=== PATIENT | male | born 1960 | race African-American/Black ===

== ENCOUNTER 2017-10-25 03:34 | Outpatient (CLI) | payer BC | END 2017-10-25 03:35 | disposition home or self-care (01) | LOC: BICULT 03:34 | PROVIDERS: ATTEND Internal Medicine Gastroenterology | DX: K21.9 Gastro-esophageal reflux disease without esophagitis (principal); R07.9 Chest pain, unspecified; K76.89 Other specified diseases of liver | CPT/HCPCS: 76705 ==

== ENCOUNTER 2022-02-23 09:59 | Inpatient (IN) | payer MEDICARE ==
[2022-02-18 13:25] VITALS: BMI 26.6
[2022-02-23] MEDS ORDERED: Fentanyl 250 MCG/5 ML VIAL ONE (12:07)
[2022-02-23] MEDS ORDERED: Levofloxacin 500 mg/D5W 100 ml Premix Bag ONE (12:21)
[2022-02-23] MEDS ORDERED: PHENYLEPHRINE-NS 100 MCG/ML 10 ML SYRINGE ONE (12:22)
[2022-02-23] MEDS ORDERED: Lidocaine 1% PF 5 ML VIAL ONE (12:22)
[2022-02-23] MEDS ORDERED: PROPOFOL 200 MG/20 ML VIAL ONE (12:22)
[2022-02-23] MEDS ORDERED: Ondansetron PF 4 MG/2 ML Vial ONE (12:22)
[2022-02-23] MEDS ORDERED: ePHEDrine 50 MG/ML VIAL ONE (12:22)
[2022-02-23] MEDS ORDERED: Ondansetron HCl/PF 4 MG/2 ML Vial IVP PRN (13:33)
[2022-02-23] MEDS ORDERED: Promethazine HCl 25 MG/ML VIAL IVPB PRN (13:33)
[2022-02-23] MEDS ORDERED: Promethazine HCl 25 MG/ML VIAL IM PRN (13:33)
[2022-02-23] MEDS ORDERED: Ketorolac Tromethamine 30 MG/ML VIAL IVP PRN (13:33)
[2022-02-23] MEDS ORDERED: Meperidine HCl/PF 25 MG/ML VIAL SLOW IVP PRN (13:33)
[2022-02-23] MEDS ORDERED: HYDROmorphone 2 MG/ML VIAL SLOW IVP PRN (13:33)
[2022-02-23 14:07] LABS: #Eosinphils 0.3 thou/uL (0.0-0.7); #Lymphocytes 1.8 thou/uL (1.20-3.40); #Monocytes 0.4 thou/uL (0.11-0.59); %Basophils 0.3 % (0.0-1.0); %Eosinophils 2.7 % (0.0-10.0); %Lymphocytes 19.1 % (21.0-51.0); %Monocytes 4.1 % (0.0-10.0); %Neutrophils 73.8 % (42.0-75.0); Hemoglobin 11.9 g/dL (14.0-18.0); Mean Corpuscular HGB CONC 32.4 g/dL (32.0-36.0); Mean Corpuscular Hemoglobin 29.9 pg (27.0-31.0); Mean Corpuscular Volume 92.2 fL (78.0-98.0); Mean Platelet Volume 8.6 fL (7.4-10.4); Platelet Count 180 thou/uL (130-400); RBC Distribution Width 11.9 % (11.5-14.5); Red Blood Cell (RBC) Count 3.97 mill/uL (4.70-6.10); White Blood Cell (WBC) Count 9.5 thou/uL (4.8-10.8)
[2022-02-23] MEDS ORDERED: Fentanyl 100 MCG/2 ML VIAL ONE (14:21)
[2022-02-23] MEDS ORDERED: B & O ONE (14:37)
[2022-02-23] MEDS ORDERED: Dextrose 5% in Water 1,000 ML IV PRN (14:41)
[2022-02-23] MEDS ORDERED: Dextrose 50% Abboject 50 ML SYRINGE SLOW IVP PRN (14:41)
[2022-02-23] MEDS ORDERED: HumaLOG 300 UNITS/3 ML VIAL SC PRN ×2 (14:41)
[2022-02-23] MEDS ORDERED: hydrALAZINE 20 MG/ML VIAL SLOW IVP PRN (14:42)
[2022-02-23] MEDS: D5 1/2 NS w/20 mEq KCL 1,000 ML IV SCH (18:17)
[2022-02-23] MEDS: Atorvastatin Calcium 40 MG TAB PO SCH (21:14)
[2022-02-23] MEDS: Carvedilol 25 MG TAB PO SCH (21:14)
[2022-02-23] MEDS: Famotidine 20 MG TAB PO SCH (21:15)
[2022-02-23] MEDS: Acetaminophen/Codeine 30-300mg Tablet PO PRN (21:15)
[2022-02-23] MEDS: Timolol 0.5% Ophth Soln 5 ml Bottle EA EYE SCH (21:36)
[2022-02-23] MEDS: Latanoprost 0.005% Ophth Soln 2.5 ml Bottle EA EYE SCH (21:36)
[2022-02-23] MEDS: Dorzolamide HCl 2% Ophth Soln 10 ml Bottle EA EYE SCH (21:37)
[2022-02-23] MEDS: B & O PR SCH (21:38)
[2022-02-23] MEDS: Docusate 100 MG CAP PO SCH (21:38)
[2022-02-23] MEDS: Brimonidine Tartrate 0.2% Ophth Soln 5 ml Bottle EA EYE SCH (22:49)
[2022-02-24 05:28] LABS: #Lymphocytes 1.6 thou/uL (1.20-3.40); #Monocytes 0.8 thou/uL (0.11-0.59); #Neutrophils 13.9 thou/uL (1.40-6.50); %Basophils 0.2 % (0.0-1.0); %Neutrophils 84.8 % (42.0-75.0); Hemoglobin 12.9 g/dL (14.0-18.0); Mean Corpuscular HGB CONC 33.6 g/dL (32.0-36.0); Mean Corpuscular Volume 92.3 fL (78.0-98.0); Mean Platelet Volume 9.1 fL (7.4-10.4); Platelet Count 197 thou/uL (130-400); RBC Distribution Width 11.7 % (11.5-14.5); Red Blood Cell (RBC) Count 4.17 mill/uL (4.70-6.10); White Blood Cell (WBC) Count 16.4 thou/uL (4.8-10.8)
[2022-02-24] MEDS: B & O PR SCH ×3 (06:00→22:12)
[2022-02-24] MEDS: D5 1/2 NS w/20 mEq KCL 1,000 ML IV SCH ×2 (06:02→12:32)
[2022-02-24] MEDS: Multivitamin W/ Minerals 1 TAB PO SCH (09:03)
[2022-02-24] MEDS: Docusate 100 MG CAP PO SCH ×2 (09:03→21:45)
[2022-02-24] MEDS: Spironolactone 25 MG TAB PO SCH (09:04)
[2022-02-24] MEDS: Losartan 25 MG TAB PO SCH (09:04)
[2022-02-24] MEDS: Famotidine 20 MG TAB PO SCH ×2 (09:04→21:37)
[2022-02-24] MEDS: Amlodipine 5 MG TAB PO SCH (09:04)
[2022-02-24] MEDS: Carvedilol 25 MG TAB PO SCH ×3 (09:04→21:38)
[2022-02-24] MEDS: Brimonidine Tartrate 0.2% Ophth Soln 5 ml Bottle EA EYE SCH ×2 (09:06→21:40)
[2022-02-24] MEDS: Dorzolamide HCl 2% Ophth Soln 10 ml Bottle EA EYE SCH ×2 (09:07→21:41)
[2022-02-24] MEDS: Timolol 0.5% Ophth Soln 5 ml Bottle EA EYE SCH ×2 (09:08→21:47)
[2022-02-24] MEDS: Acetaminophen/Codeine 30-300mg Tablet PO PRN (09:13)
[2022-02-24] MEDS: Atorvastatin Calcium 40 MG TAB PO SCH (21:37)
[2022-02-24] MEDS: Latanoprost 0.005% Ophth Soln 2.5 ml Bottle EA EYE SCH (21:46)
[2022-02-25] MEDS: D5 1/2 NS w/20 mEq KCL 1,000 ML IV SCH ×2 (01:40→06:32)
[2022-02-25] MEDS: Acetaminophen/Codeine 30-300mg Tablet PO PRN (03:59)
[2022-02-25] MEDS: Amlodipine 5 MG TAB PO SCH (10:24)
[2022-02-25] MEDS: Multivitamin W/ Minerals 1 TAB PO SCH (10:24)
[2022-02-25] MEDS: Spironolactone 25 MG TAB PO SCH (10:24)
[2022-02-25] MEDS: Carvedilol 25 MG TAB PO SCH (10:24)
[2022-02-25] MEDS: Losartan 25 MG TAB PO SCH (10:24)
[2022-02-25] MEDS: Famotidine 20 MG TAB PO SCH (10:25)
[2022-02-25] MEDS: Docusate 100 MG CAP PO SCH (10:25)
[2022-02-25] MEDS: Dorzolamide HCl 2% Ophth Soln 10 ml Bottle EA EYE SCH (10:26)
[2022-02-25] MEDS: Brimonidine Tartrate 0.2% Ophth Soln 5 ml Bottle EA EYE SCH (10:26)
[2022-02-25] MEDS: Timolol 0.5% Ophth Soln 5 ml Bottle EA EYE SCH (10:26)
[2022-02-25 15:46] VITALS: BP 103/61; TEMP 97.7
[2022-02-28] MEDS ORDERED: SEMAGLUTIDE 0.25 MG/0.2 ML SC SCH (09:00)
== END 2022-02-25 15:45 | disposition home or self-care (01) | DRG 713 ==
LOC: SDC 09:59 → SURG B 13:47
PROVIDERS: ADMIT Urology; ATTEND Urology
PROC: 0VB08ZZ Excision of Prostate, Via Natural or Artificial Opening Endoscopic (ICD-10-PCS; principal; 2022-02-23)
DX: C61 Malignant neoplasm of prostate (principal); I42.0 Dilated cardiomyopathy; N40.1 Benign prostatic hyperplasia with lower urinary tract symptoms; I25.10 Atherosclerotic heart disease of native coronary artery without angina pectoris; E78.00 Pure hypercholesterolemia, unspecified; I10 Essential (primary) hypertension; K21.9 Gastro-esophageal reflux disease without esophagitis; E11.9 Type 2 diabetes mellitus without complications; F32.A Depression, unspecified; E78.5 Hyperlipidemia, unspecified; G47.33 Obstructive sleep apnea (adult) (pediatric); R58 Hemorrhage, not elsewhere classified; Z98.890 Other specified postprocedural states; Z88.8 Allergy status to other drugs, medicaments and biological substances; Z95.810 Presence of automatic (implantable) cardiac defibrillator
CPT/HCPCS: 36415; 36416; 85025; 88305; 88341; 88342; J1956; J2405; J2704; J3010; J3480; J3490

== ENCOUNTER 2022-11-24 06:55 | Day surgery (SDC) | payer MEDICARE ==
[2022-11-23 10:20] VITALS: BMI 26.6
[2022-11-24] MEDS ORDERED: PHENYLEPHRINE-NS 100 MCG/ML 10 ML SYRINGE ONE (08:08)
[2022-11-24] MEDS ORDERED: Lidocaine 1% PF 5 ML VIAL ONE (08:08)
[2022-11-24] MEDS ORDERED: PROPOFOL 200 MG/20 ML VIAL ONE (08:08)
== END 2022-11-24 09:41 | disposition home or self-care (01) ==
LOC: SDC 06:55
PROVIDERS: ATTEND Internal Medicine Gastroenterology
PROC: 0DBN8ZX Excision of Sigmoid Colon, Via Natural or Artificial Opening Endoscopic, Diagnostic (ICD-10-PCS; principal; 2022-11-24)
DX: Z12.11 Encounter for screening for malignant neoplasm of colon (principal); D12.5 Benign neoplasm of sigmoid colon; I11.0 Hypertensive heart disease with heart failure; I50.9 Heart failure, unspecified; E11.9 Type 2 diabetes mellitus without complications; E78.00 Pure hypercholesterolemia, unspecified; K21.9 Gastro-esophageal reflux disease without esophagitis; N40.1 Benign prostatic hyperplasia with lower urinary tract symptoms; N13.8 Other obstructive and reflux uropathy; F17.210 Nicotine dependence, cigarettes, uncomplicated; Z79.84 Long term (current) use of oral hypoglycemic drugs; Z79.899 Other long term (current) drug therapy; Z95.810 Presence of automatic (implantable) cardiac defibrillator
CPT/HCPCS: 88305; J2704